=== PATIENT | female | born 1995 | race Caucasian/White ===

== ENCOUNTER 2018-12-23 22:26 | Emergency (ER) | payer OTHER ==
[2018-12-23 22:36] VITALS: BMI 27.3
--- NOTE | 2018-12-23 23:25 | PDOC ---
History of Present Illness - General Chief Complaint: Choking Sensation Stated Complaint: FOREIGN BODY STUCK/THROAT Time Seen by Provider: 12/23/18 23:22 Past History - Past Medical History Allergies/Adverse Reactions: Allergies Allergy/AdvReac Type Severity Reaction Status Date / Time No Known Allergies Allergy Verified 12/11/18 18:34 Home Medications: Ambulatory Orders No Home Medications 0 dose .ROUTE UTDICT 07/27/13 Methocarbamol [Robaxin -] 500 mg PO TID PRN #21 tablet 12/11/18 COPD: No - Immunization History Immunization Up to Date: Yes - Suicide/Smoking/Psychosocial Hx Smoking History: Never smoked Hx Alcohol Use: No Drug/Substance Use Hx: No *Physical Exam - Vital Signs Last Vital Signs Temp Pulse Resp BP Pulse Ox 98.5 F 110 H 19 146/78 96 12/23/18 22:33 12/23/18 22:33 12/23/18 22:33 12/23/18 22:33 12/23/18 22:33 Medical Decision Making - Medical Decision Making 12/24/18 02:06 No obvious FB in the esophagous on x-ray soft tissue neck Pt tolerating PO Will refer to GI given that she is having recurrent symptoms DC home Return precautions given *DC/Admit/Observation/Transfer Diagnosis at time of Disposition: Sensation of foreign body in esophagus - Discharge Dispostion Disposition: HOME Condition at time of disposition: Stable Decision to Admit order: No - Referrals Referrals: Juan Martinez MD [Staff Physician] - - Patient Instructions Additional Instructions: You were evaluated for a foreign body sensation in your throat. Your x-ray did not show any obstruction. Chew your food thoroughly in small bites and drink plenty of fluids when you eat. Please follow up with a frame and scrap crusher (stomach doctor) this week. A referral has been provided to you. Return to the ER for any new or worsening symptoms. - Post Discharge Activity Forms/Work/School Notes: Back to Work
--- NOTE | 2018-12-23 23:25 | PDOC ---
*Physical Exam - Vital Signs Last Vital Signs Temp Pulse Resp BP Pulse Ox 98.5 F 110 H 19 146/78 96 12/23/18 22:33 12/23/18 22:33 12/23/18 22:33 12/23/18 22:33 12/23/18 22:33 Medical Decision Making - Medical Decision Making 12/23/18 23:25 Patient seen by the advanced practice provider under my direct supervision. Ancillary testing reviewed as necessary. I agree with plan as outlined by the advanced practice provider. *DC/Admit/Observation/Transfer Diagnosis at time of Disposition: Sensation of foreign body in esophagus - Discharge Dispostion Disposition: HOME Condition at time of disposition: Stable - Prescriptions Prescriptions: Ondansetron [Zofran Odt -] 4 mg SL TID #10 od.tablet - Referrals Referrals: Juan Martinez MD [Staff Physician] - - Patient Instructions Additional Instructions: You were evaluated for a foreign body sensation in your throat. Your x-ray did not show any obstruction. Chew your food thoroughly in small bites and drink plenty of fluids when you eat. Please follow up with a education program manager (stomach doctor) this week. A referral has been provided to you. Return to the ER for any new or worsening symptoms. - Post Discharge Activity Forms/Work/School Notes: Back to Work
[2018-12-23] MEDS ORDERED: ACETAMINOPHEN 650 MG/20.3 ML ORAL SOLUTION (CUPS) PO ONE (23:26)
[2018-12-24] MEDS ORDERED: ACETAMINOPHEN 325 MG TABLET (FP) ONE (00:24)
[2018-12-24 02:49] VITALS: BP 117/69; PULSE 77; TEMP 98.3
== END 2018-12-24 02:51 | disposition home or self-care (01) ==
LOC: JER 22:26
DX: K22.8 Other specified diseases of esophagus (principal)
CPT/HCPCS: 70360-TC-FY; 99282-25

== ENCOUNTER 2019-04-08 01:10 | Emergency (ER) | payer OTHER ==
--- NOTE | 2019-04-08 01:55 | PDOC ---
Attending Attestation - Resident Resident Name: Grace Edwards - ED Attending Attestation I have performed the following: I have examined & evaluated the patient, The case was reviewed & discussed with the resident, I agree w/resident's findings & plan - HPI HPI: 04/08/19 02:20 see resident hpi - Physicial Exam PE: 04/08/19 02:20 agree with resident exam - Medical Decision Making 04/08/19 02:20 23-year-old female with atraumatic left-sided neck pain for several days Exam consistent with musculoskeletal pain, there are no signs or symptoms consistent with radiculopathy Patient is neurovascularly intact There is no midline tenderness There is no palpable mass No carotid bruit Patient will be given anti-inflammatories including dexamethasone She was advised that should she develop difficulty swallowing, swelling or any worsening in her condition including sore throat she should return to the emergency department for repeat evaluation
[2019-04-08] MEDS ORDERED: LIDOCAINE 5% TOPICAL PATCH TP ONE (02:05)
[2019-04-08 02:13] VITALS: BP 151/73; PULSE 95; TEMP 97.8; BMI 26.8
[2019-04-08] MEDS ORDERED: DEXAMETHASONE SOD PHOSPHATE 10 MG/1 ML VIAL IM ONE (02:13)
[2019-04-08] MEDS ORDERED: KETOROLAC TROMETHAMINE 30 MG/1 ML VIAL IM ONE (02:13)
--- NOTE | 2019-04-08 02:22 | PDOC ---
History of Present Illness - General Stated Complaint: NECK PAIN Time Seen by Provider: 04/08/19 01:50 History Source: Patient Exam Limitations: No Limitations - History of Present Illness Initial Comments: 04/08/19 02:29 23y F presenting to ED with complaints of L sided neck pain x3 days. Pt states she was asleep on a couch and when she woke up she felt a discomfort on the left side of her neck. She states that it feels like a stretching pain. Denies inability to range neck, dizziness, changes in vision, numbness/tingling, arm pain, weakness, sob, chest pain, headache. She took ibuprofen but it did not really help. Past History - Past Medical History Allergies/Adverse Reactions: Allergies Allergy/AdvReac Type Severity Reaction Status Date / Time No Known Allergies Allergy Verified 04/08/19 02:12 Home Medications: Ambulatory Orders Ondansetron [Zofran Odt -] 4 mg SL TID #10 od.tablet 12/24/18 COPD: No - Immunization History Immunization Up to Date: Yes - Psycho Social/Smoking Cessation Hx Smoking History: Never smoked Information on smoking cessation initiated: No Hx Alcohol Use: No Drug/Substance Use Hx: No Review of Systems - Review of Systems Constitutional: No: Symptoms Reported HEENTM: No: Symptoms Reported Respiratory: No: Symptoms reported Cardiac (ROS): No: Symptoms Reported ABD/GI: No: Symptoms Reported : No: Symptoms Reported Musculoskeletal: Yes: See HPI Integumentary: No: Symptoms Reported Neurological: No: Symptoms reported *Physical Exam - Vital Signs Last Vital Signs Temp Pulse Resp BP Pulse Ox 97.8 F 95 H 18 151/73 98 04/08/19 01:40 04/08/19 01:40 04/08/19 01:40 04/08/19 01:40 04/08/19 01:40 - Physical Exam General Appearance: Yes: Nourished, Appropriately Dressed. No: Apparent Distress HEENT: positive: EOMI, SHEREEN Neck: positive: Trachea midline, Supple. negative: Tender, Carotid bruit, Tender lateral Respiratory/Chest: positive: Lungs Clear, Normal Breath Sounds Gastrointestinal/Abdominal: negative: Distended Extremity: negative: Swelling Integumentary: positive: Normal Color, Dry, Warm Neurologic: positive: foreign agent II-XII NML intact, Fully Oriented, Alert, Normal Mood/ Affect, Normal Response, Motor Strength 5/5 Medical Decision Making - Medical Decision Making 04/08/19 02:33 23y F presenting with l sided neck pain after waking up from sleeping on the couch. ddx includes but not limited to dissection, torticollis, aneurysm, msk. most likley msk. pt denies neurological symptmos. low suspicion for dissection of vertebral aa. will give toradol and decadron. will advise patient to take motrin as needed and apply heating pads. safe for dc home Discharge - Discharge Information Problems reviewed: Yes Clinical Impression/Diagnosis: Trapezius muscle strain Qualifiers: Encounter type: initial encounter Laterality: left Qualified Code(s): S46.812A - Strain of other muscles, fascia and tendons at shoulder and upper arm level, left arm, initial encounter Condition: Fair Disposition: HOME - Admission No - Follow up/Referral Referrals: Art Rogers [Primary Care Provider] - - Patient Discharge Instructions Patient Printed Discharge Instructions: Muscle Strain Additional Instructions: You were seen in the emergency room for neck pain. This is likely due to the way you were sleeping. I recommend applying a heating pad and do light stretches. You can take Advil or motrin for the pain as needed. Please come back to the emergency room if you have worsening pain/stiffness, dizziness, you pass out, have throat pain or if any new or concerning symptom develops. Thank you - Post Discharge Activity
[2019-04-08] MEDS ORDERED: LIDOCAINE 5% TOPICAL PATCH ONE (02:25)
[2019-04-08] MEDS ORDERED: KETOROLAC TROMETHAMINE 30 MG/1 ML VIAL ONE (02:25)
[2019-04-08] MEDS ORDERED: DEXAMETHASONE SOD PHOSPHATE 10 MG/1 ML VIAL ONE (02:25)
[2019-04-08] MEDS ORDERED: LIDOCAINE PATCH REMOVAL MC SCH (22:00)
== END 2019-04-08 02:45 | disposition home or self-care (01) ==
LOC: JER 01:10
PROC: 3E0233Z Introduction of Anti-inflammatory into Muscle, Percutaneous Approach (ICD-10-PCS; principal; 2019-04-08)
PROC: 3E0233Z Introduction of Anti-inflammatory into Muscle, Percutaneous Approach (ICD-10-PCS; 2019-04-08)
DX: S46.812A Strain of other muscles, fascia and tendons at shoulder and upper arm level, left arm, initial encounter (principal); X50.1XXA Overexertion from prolonged static or awkward postures, initial encounter; Y93.84 Activity, sleeping; Y92.038 Other place in apartment as the place of occurrence of the external cause; Y99.8 Other external cause status
CPT/HCPCS: 99282-25; J1100

== ENCOUNTER 2019-05-27 03:50 | Inpatient (IN) | payer OTHER ==
[2019-05-27] MEDS ORDERED: SODIUM CHLORIDE 1,000 ML IV STA (04:20)
--- NOTE | 2019-05-27 04:20 | PDOC ---
History of Present Illness - General Stated Complaint: S.O.B. CHEST DISCOMFORT Time Seen by Provider: 05/27/19 04:13 History Source: Patient Exam Limitations: No Limitations - History of Present Illness Initial Comments: Breanna Tom is a 23 yo obese F w a hx of anxiety who presents to the [facility] er with chest pain worsened when she takes a deep breath and states she feels like she is short of breath. She reports it is difficult for her to fully inhale. She states she takes OCP. She describes her chest pain as sharp in nature. Denies radiation. She states she also has left lower leg and calf pain which have been hurting for 3 days now. She states she was seen at [facility] for the same complaints yesterday where they worked her up for a cardio work up which ultimately was negative and she was discharged. Denies nausea, vomiting, diaphoresis, worsening with physical activity. PCP: Art Rogers PSH: None reported Allergies: NKA, NKDA Social Hx: Denies smoking, drinking, or other substance usage. Past History - Past Medical History Allergies/Adverse Reactions: Allergies Allergy/AdvReac Type Severity Reaction Status Date / Time No Known Allergies Allergy Verified 05/27/19 04:41 Home Medications: Ambulatory Orders Norethindrone AC-Eth Estradiol [Junel] 1 each PO DAILY 05/27/19 COPD: No - Immunization History Immunization Up to Date: Yes - Psycho Social/Smoking Cessation Hx Smoking History: Never smoked Hx Alcohol Use: No Drug/Substance Use Hx: No Review of Systems - Review of Systems Able to Perform ROS?: Yes Comments:: CONSTITUTIONAL: Absent: fever, no chills, no fatigue EYES: Absent: visual changes ENT: Absent: ear pain, no sore throat CARDIOVASCULAR: Present: chest pain, palpitations RESPIRATORY: Present: SOB Absent: cough GI: Absent: abdominal pain, no nausea, no vomiting, no constipation, no diarrhea GENITOURINARY: Absent: dysuria, no frequency, no hematuria MUSKULOSKELETAL: Absent: back pain, no arthralgia, no myalgia SKIN: Absent: rash NEURO: Absent: headache *Physical Exam - Physical Exam GENERAL: Well-appearing, well-nourished. Mild distress. HEENT: Normocephalic, atraumatic. PERRL, EOM intact. CARDIOVASCULAR: Tachycardic rate. Normal S1, S2. Regular rhythm. PULMONARY: Mild evidence of respiratory distress. Lungs clear to auscultation bilaterally. No wheezing, rales or rhonchi. ABDOMEN: Soft, non-distended, non-tender. EXTREMITIES: Normal ROM in all four extremities. No gross deformities. SKIN: Warm, dry. No rash NEUROLOGICAL: No focal neurological deficits. ED Treatment Course - LABORATORY CBC & Chemistry Diagram: 05/27/19 04:35 05/27/19 04:35 Medical Decision Making - Medical Decision Making Breanna Tom is a 23 yo obese F w a hx of anxiety who presents to the [facility] er with chest pain worsened when she takes a deep breath and states she feels like she is short of breath. She reports it is difficult for her to fully inhale. She states she takes OCP. She describes her chest pain as sharp in nature. Denies radiation. She states she also has left lower leg and calf pain which have been hurting for 3 days now. She states she was seen at [facility] for the same complaints yesterday where they worked her up for a cardio work up which ultimately was negative and she was discharged. Denies nausea, vomiting, diaphoresis, worsening with physical activity. Vital Signs Temp Pulse Resp BP Pulse Ox 98.1 F 100 H 21 H 158/89 100 05/27/19 03:55 05/27/19 03:55 05/27/19 03:55 05/27/19 03:55 05/27/19 03:55 DDx IBNLT: DVT vs PE, ACS, arrythmia, Thyroid abnormality, electrolyte/ metabolic disturbance, EKG: NS rate of 77, narrow complexes, normal axis, no hypertrophy, no ST elevations or depressions, QTc 427, VA 134 PE assessment: Patient cannot be PERC'ed out as she is tachycardic and takes OCP Wells score: 1.5 for tachycardia vs 4.5 for Tachy plus PE #1 diagnosis - Plan for D-Dimer Labs: D-Dimer WNL. Completely normal. Signing out patient to Dr. Harrell and the day team for further ED care, management, and final disposition Discharge - Discharge Information Problems reviewed: Yes Clinical Impression/Diagnosis: Pulmonary emboli Qualifiers: Pulmonary embolism type: single subsegmental (without acute cor pulmonale) Qualified Code(s): I26.93 - Single subsegmental pulmonary embolism without acute cor pulmonale Condition: Good Disposition: HOME - Follow up/Referral - Patient Discharge Instructions - Post Discharge Activity
[2019-05-27 04:41] VITALS: BMI 26.4
--- NOTE | 2019-05-27 05:06 | PDOC ---
Attending Attestation - Resident Resident Name: Matt Coelho - ED Attending Attestation I have performed the following: I have examined & evaluated the patient, The case was reviewed & discussed with the resident, I agree w/resident's findings & plan - HPI HPI: 05/27/19 05:04 see resident hpi - Physicial Exam PE: 05/27/19 05:05 see resident exam 05/27/19 05:05 - Medical Decision Making 05/27/19 05:05 23-year-old female with dyspnea and leg cramping Patient is actively dyspneic, borderline tachycardia and on oral contraceptives Plan for CTA of the chest, labs, EKG Hopeful discharge home pending results
[2019-05-27 05:31] LABS: BASO % 0.7 % (0-2.0); EOS % 6.4 % (0-4.5); HEMATOCRIT 38.7 % (32.4-45.2); HEMOGLOBIN 13.5 GM/dL (10.7-15.3); LYMPH % 32.8 % (8-40); MCH 30.7 pg (25.7-33.7); MCHC 34.9 g/dl (32.0-36.0); MEAN CELL VOLUME 87.9 fl (80-96); MEAN PLT VOLUME 8.9 fl (7.5-11.1); MONO % 8.5 % (3.8-10.2); NEUT % 51.6 % (42.8-82.8); PLATELET COUNT 250 K/MM3 (134-434); RBC 4.41 M/mm3 (3.60-5.2); RDW 13.2 % (11.6-15.6); WHITE BLOOD COUNT 7.5 K/mm3 (4.0-10.0)
[2019-05-27 06:18] LABS: INR 1.01 (0.83-1.09); PROTHROMBIN TIME (PATIENT) 11.9 SEC (9.7-13.0)
[2019-05-27 06:21] LABS: ACTIVATED PTT 35.5 SECONDS (25.2-36.5)
[2019-05-27 06:56] LABS: ALBUMIN 4.2 g/dl (3.4-5.0); ALK PHOS 46 U/L (45-117); ANION GAP 10 MMOL/L (8-16); BILIRUBIN,TOTAL 0.2 mg/dL (0.2-1); BLOOD UREA NITROGEN 7.8 mg/dL (7-18); CHLORIDE 106 mmol/L (98-107); CO2 23 mmol/L (21-32); CREATININE 0.8 mg/dL (0.55-1.3); GLUCOSE,RANDOM 89 mg/dL (74-106); SGOT/AST 16 U/L (15-37); SGPT/ALT 18 U/L (13-61); SODIUM 139 mmol/L (136-145); TOT PROT 7.8 g/dl (6.4-8.2)
--- NOTE | 2019-05-27 07:18 | PDOC ---
*Physical Exam - Vital Signs Last Vital Signs Temp Pulse Resp BP Pulse Ox 98.1 F 67 18 131/76 100 05/27/19 03:55 05/27/19 06:25 05/27/19 06:25 05/27/19 06:25 05/27/19 06:25 ED Treatment Course - LABORATORY CBC & Chemistry Diagram: 05/27/19 04:35 05/27/19 04:35 - ADDITIONAL ORDERS Additional order review: Laboratory Results 05/27/19 05/27/19 05/27/19 04:35 04:35 04:35 PT with INR 11.90 INR 1.01 PTT (Actin FS) 35.5 D-Dimer < 215 Sodium Potassium Chloride Carbon Dioxide Anion Gap BUN Creatinine Est GFR (CKD-EPI)AfAm Est GFR (CKD-EPI)NonAf Random Glucose Calcium Magnesium Total Bilirubin AST ALT Alkaline Phosphatase Creatine Kinase Troponin I B-Natriuretic Peptide 20.1 Total Protein Albumin TSH 05/27/19 05/27/19 04:35 04:35 PT with INR INR PTT (Actin FS) D-Dimer Sodium 139 Potassium 4.0 Chloride 106 Carbon Dioxide 23 Anion Gap 10 BUN 7.8 Creatinine 0.8 Est GFR (CKD-EPI)AfAm 122.14 Est GFR (CKD-EPI)NonAf 105.39 Random Glucose 89 Calcium 10.0 Magnesium 2.0 Total Bilirubin 0.2 AST 16 ALT 18 Alkaline Phosphatase 46 Creatine Kinase 80 Troponin I < 0.02 B-Natriuretic Peptide Total Protein 7.8 Albumin 4.2 TSH 2.10 05/27/19 04:35 RBC 4.41 MCV 87.9 MCHC 34.9 RDW 13.2 MPV 8.9 Neutrophils % 51.6 Lymphocytes % 32.8 Monocytes % 8.5 Eosinophils % 6.4 H D Basophils % 0.7 - Medications Given in the ED: ED Medications Discontinued Medications Generic Name Dose Route Start Last Admin Trade Name Freq PRN Reason Stop Dose Admin Sodium Chloride 1,000 mls @ 1,000 mls/hr 05/27/19 04:20 05/27/19 04:39 Normal Saline - IV 05/27/19 05:19 1,000 mls/hr ASDIR STA Administration Medical Decision Making - Medical Decision Making 05/27/19 07:22 Duplex US - no DVT leg CTA - Questionable filling defects within RUL pulmonary arterial branches that may represent PE, finding not consistent on all views and may be artifact --- Signed out from night team Breanna Tom is a 23 yo obese F w a hx of anxiety who presents to the [facility] er with pleuritic chest pain, SOB, LLE pain on OCP. Questionable PE in RUL pulmonary artery on CTA. Low concern for ACS (neg trop, NSR EKG) vs PNA (clear lungs on CTA) vs DVT (negative L leg duplex US) Given toradol, 1L NS, 70 lovenox Admitted m/s hospitalist for PE Discharge - Discharge Information Problems reviewed: Yes Clinical Impression/Diagnosis: Pulmonary emboli Qualifiers: Pulmonary embolism type: single subsegmental (without acute cor pulmonale) Qualified Code(s): I26.93 - Single subsegmental pulmonary embolism without acute cor pulmonale Condition: Good Disposition: HOME - Admission No - Follow up/Referral - Patient Discharge Instructions - Post Discharge Activity
[2019-05-27] MEDS ORDERED: KETOROLAC TROMETHAMINE 30 MG/1 ML VIAL IVPUSH ONE (07:31)
[2019-05-27] MEDS ORDERED: KETOROLAC TROMETHAMINE 30 MG/1 ML VIAL ONE (07:47)
[2019-05-27] MEDS ORDERED: ENOXAPARIN NA (PORCINE) 40 MG/0.4 ML DISP.SYRIN SQ ONE (09:57)
[2019-05-27] MEDS ORDERED: ENOXAPARIN NA (PORCINE) 80 MG/0.8 ML DISP.SYRIN SQ ONE (10:23)
--- NOTE | 2019-05-27 12:38 | CON.PULM ---
Consult Consult Specialty:: PULM/CCM Referred by:: Hospitalist Reason for Consultation:: Questionable PE - History of Present Illness Chief Complaint: CP History of Present Illness: 23 F, only medical history of anxiety. No asthma. Non-smoker. No alcohol or substance abuse. She does take OCPs. Has been experiencing non-radiating sternal chest pressure and difficulty in taking a deep breath since Friday. No recent travel history or periods of immobilization. No previous personal or family history of VTE. Patient was assessed yesterday at [facility] for the same and apparently the workup was negative. No fever or chills. No hemoptysis. CTA reviewed with radiology. There is a questionable RUL and LLL segmental PE. Suggested to order V/Q scan. - History Source History Provided By: Patient Limitations to Obtaining History: No Limitations - Past Medical History Pulmonary: No: Asthma, Bronchitis, Cancer, COPD, O2 Dependent, Pneumonia, Previously Intubated, Pulmonary Embolus, Pulmonary Fibrosis, Sleep Apnea ...LMP: 07/11/13 - Alcohol/Substance Use Hx Alcohol Use: No - Smoking History Smoking history: Never smoked Home Medications - Allergies Allergies/Adverse Reactions: Allergies Allergy/AdvReac Type Severity Reaction Status Date / Time No Known Allergies Allergy Verified 05/27/19 04:41 - Home Medications Home Medications: Ambulatory Orders Norethindrone AC-Eth Estradiol [] 1 each PO DAILY 05/27/19 Review of Systems - Review of Systems Constitutional: denies: Chills, Fever, Night Sweats, Unintentional Wgt. Loss Eyes: reports: No Symptoms HENT: reports: No Symptoms Neck: reports: No Symptoms Cardiovascular: reports: Chest Pain, Shortness of Breath. denies: Edema, Palpitations Respiratory: reports: Cough, SOB, SOB on Exertion. denies: Hemoptysis, Orthopnea, PND, Snoring, Wheezing Gastrointestinal: reports: No Symptoms Genitourinary: reports: No Symptoms Breasts: reports: No Symptoms Reported Musculoskeletal: reports: Muscle Cramps Integumentary: reports: No Symptoms Neurological: reports: No Symptoms Endocrine: reports: No Symptoms Hematology/Lymphatic: reports: No Symptoms Psychiatric: reports: No Symptoms Physical Exam Vital Sings: Vital Signs Temperature 98.1 F 05/27/19 03:55 Pulse Rate 72 05/27/19 09:46 Respiratory Rate 20 05/27/19 09:46 Blood Pressure 117/74 05/27/19 09:46 O2 Sat by Pulse Oximetry (%) 100 05/27/19 09:47 Constitutional: Yes: No Distress Eyes: Yes: Conjunctiva Clear, EOM Intact HENT: Yes: Atraumatic, Normocephalic Neck: Yes: Trachea Midline Cardiovascular: Yes: Regular Rate and Rhythm Respiratory: No: Accessory Muscle Use, Rales, Rhonchi, SOB, SOB on Exertion, Stridor, Tachypnea, Wheezes ...Inspection: Yes: WNL ...Clubbing: No Gastrointestinal: Yes: Normal Bowel Sounds, Soft Renal/: Yes: WNL Musculoskeletal: Yes: WNL Extremities: Yes: WNL Edema: No Peripheral Pulses WNL: Yes Integumentary: Yes: WNL Neurological: Yes: WNL, Alert, Oriented ...Motor Strength: WNL Psychiatric: Yes: WNL, Alert, Oriented Labs: CBC, BMP 05/27/19 04:35 05/27/19 04:35 Imaging - Results Cat Scan: Report Reviewed, Image Reviewed Problem List - Problems (1) Anxiety Code(s): F41.9 - ANXIETY DISORDER, UNSPECIFIED (2) Pleuritic chest pain Code(s): R07.81 - PLEURODYNIA (3) Chest pain Code(s): R07.9 - CHEST PAIN, UNSPECIFIED Assessment/Plan IMP: Questionable RUL and LLL segmental PE. Unclear on CTA. D/W Radiology. Will order V/Q scan. DVT study was negative No smoking was counseled Patient has received a prophylactic dose of Lovenox, to continue until PE is ruled out. Will follow closely Thank you. Dr Gallegos
--- NOTE | 2019-05-27 14:25 | EKG ---
Test Reason : Blood Pressure : / mmHG Vent. Rate : 077 BPM Atrial Rate : 077 BPM P-R Int : 134 ms QRS Dur : 082 ms QT Int : 378 ms P-R-T Axes : 038 032 021 degrees QTc Int : 427 ms NORMAL SINUS RHYTHM NORMAL ECG NO PREVIOUS ECGS AVAILABLE Confirmed by DEL NESS MD ([id number]) on 05/27/2019 2:25:28 PM Referred By: Confirmed By:DEL NESS MD
--- NOTE | 2019-05-27 15:47 | HP ---
CHIEF COMPLAINT: sob PCP: none HISTORY OF PRESENT ILLNESS: Patient is a 23 yo F with a PMHx of Anxiety, presenting to the ED because of sudden shortness of breath and pleuritic chest pain when trying to fall asleep last night. Patient describes the chest pain as L sided, nonradiating, constant , 9/10 pain, worse with breathing. She also mentions having RLE calf pain that started around the same time. She said she was worried about blood clots and decided to go to the ER. She said she went to [facility] ER on 3 days prior for similar symptoms but was discharged with no answers. Patient takes OCP's. No recent travels, no history of DVTs/PE in the family, or immobilization. She denies fevers, chills, diarrhea, urinary symptoms, nausea, vomiting, hemoptysis , dizziness, lightheadedness. ER course was notable for: (1) CTA : There is a questionable RUL and LLL segmental PE. Suggested to order V/Q scan. (2) vs stable (3) lovenox 70mg given Recent Travel: denies PAST MEDICAL HISTORY: anxiety PAST SURGICAL HISTORY: denies Social History: Smoking: denies Alcohol: rarely Drugs: denies Allergies No Known Allergies Allergy (Verified 05/27/19 04:41) HOME MEDICATIONS: Home Medications Medication Instructions Recorded Norethindrone AC-Eth Estradiol 1 each PO DAILY 05/27/19 [] REVIEW OF SYSTEMS per HPI PHYSICAL EXAMINATION Vital Signs - 24 hr 05/27/19 05/27/19 05/27/19 03:55 06:25 09:46 Temperature 98.1 F Pulse Rate 100 H Pulse Rate [ 67 72 Left Radial] Respiratory 21 H 18 20 Rate Blood Pressure 158/89 Blood Pressure 131/76 117/74 [Left Arm] O2 Sat by Pulse 100 100 100 Oximetry (%) 05/27/19 05/27/19 09:47 14:40 Temperature 97.7 F Pulse Rate Pulse Rate [ 74 Left Radial] Respiratory 20 Rate Blood Pressure Blood Pressure 137/87 [Left Arm] O2 Sat by Pulse 100 99 Oximetry (%) GENERAL: a/o x 3, comfortable HEAD: Normal with no signs of trauma. EYES: Pupils equal, round and reactive to light, extraocular movements intact, sclera anicteric, conjunctiva clear. No lid lag. EARS, NOSE, THROAT:oropharynx clear without exudates. Moist mucous membranes. NECK: supple without lymphadenopathy, JVD, or masses. LUNGS: Breath sounds equal, clear to auscultation bilaterally. No wheezes, and no crackles. HEART: Regular rate and rhythm, normal S1 and S2 without murmur, rub or gallop. ABDOMEN: Soft, nontender, not distended, normoactive bowel sounds, no guarding, no rebound, no masses LOWER EXTREMITIES: 2+ pulses, warm, well-perfused. No calf tenderness. No peripheral edema. negative homans NEUROLOGICAL: Cranial nerves II-XII intact. Normal speech Laboratory Results - last 24 hr 05/27/19 05/27/19 05/27/19 04:35 04:35 04:35 WBC 7.5 RBC 4.41 Hgb 13.5 Hct 38.7 MCV 87.9 MCH 30.7 MCHC 34.9 RDW 13.2 Plt Count 250 MPV 8.9 Absolute Neuts (auto) 3.9 Neutrophils % 51.6 Lymphocytes % 32.8 Monocytes % 8.5 Eosinophils % 6.4 H D Basophils % 0.7 Nucleated RBC % 0 PT with INR INR PTT (Actin FS) D-Dimer Sodium 139 Potassium 4.0 Chloride 106 Carbon Dioxide 23 Anion Gap 10 BUN 7.8 Creatinine 0.8 Est GFR (CKD-EPI)AfAm 122.14 Est GFR (CKD-EPI)NonAf 105.39 Random Glucose 89 Calcium 10.0 Magnesium 2.0 Total Bilirubin 0.2 AST 16 ALT 18 Alkaline Phosphatase 46 Creatine Kinase 80 Troponin I < 0.02 B-Natriuretic Peptide Total Protein 7.8 Albumin 4.2 TSH 2.10 Serum , Qual 05/27/19 05/27/19 05/27/19 04:35 04:35 04:35 WBC RBC Hgb Hct MCV MCH MCHC RDW Plt Count MPV Absolute Neuts (auto) Neutrophils % Lymphocytes % Monocytes % Eosinophils % Basophils % Nucleated RBC % PT with INR 11.90 INR 1.01 PTT (Actin FS) 35.5 D-Dimer < 215 Sodium Potassium Chloride Carbon Dioxide Anion Gap BUN Creatinine Est GFR (CKD-EPI)AfAm Est GFR (CKD-EPI)NonAf Random Glucose Calcium Magnesium Total Bilirubin AST ALT Alkaline Phosphatase Creatine Kinase Troponin I B-Natriuretic Peptide 20.1 Total Protein Albumin TSH Serum , Qual 05/27/19 05/27/19 04:35 12:00 WBC RBC Hgb Hct MCV MCH MCHC RDW Plt Count MPV Absolute Neuts (auto) Neutrophils % Lymphocytes % Monocytes % Eosinophils % Basophils % Nucleated RBC % PT with INR INR PTT (Actin FS) D-Dimer Sodium Potassium Chloride Carbon Dioxide Anion Gap BUN Creatinine Est GFR (CKD-EPI)AfAm Est GFR (CKD-EPI)NonAf Random Glucose Calcium Magnesium Total Bilirubin AST ALT Alkaline Phosphatase Creatine Kinase Troponin I < 0.02 B-Natriuretic Peptide Total Protein Albumin TSH Serum , Qual Negative ASSESSMENT/PLAN: 23 yo F with a PMHx of Anxiety, presenting to the ED because of sudden shortness of breath and pleuritic chest pain. #Pleuritic Chest Pain -r/o PE -Questionable RUL and LLL segmental PE. Unclear on CTA. -V/q scan ordered -patient HD stable. -dvt study negative -Lovenox 70mg BID for now -Fu pulm reccs -tele monitoring #Anxiety -stable for now -says she is planning on seeing a psychiatrist outpatient #Dvt ppx on lovenox #FEN -no iv fluids -monitor -regular diet dispo: admit tele Visit type - Emergency Visit Emergency Visit: Yes ED Registration Date: 05/27/19 Care time: The patient presented to the Emergency Department on the above date and was hospitalized for further evaluation of their emergent condition. - New Patient This patient is new to me today: Yes Date on this admission: 05/27/19 - Critical Care Critical Care patient: No ATTENDING PHYSICIAN STATEMENT I saw and evaluated the patient. I reviewed the resident's note and discussed the case with the resident. I agree with the resident's findings and plan as documented. SUBJECTIVE: OBJECTIVE: ASSESSMENT AND PLAN:
--- NOTE | 2019-05-27 16:33 | PN ---
Teaching Attending Note Name of Resident: Mathieu Lubin ATTENDING PHYSICIAN STATEMENT I saw and evaluated the patient. I reviewed the resident's note and discussed the case with the resident. I agree with the resident's findings and plan as documented. SUBJECTIVE: Seen and examined at bedside. patient feels better, MANCILLA with palpitations. 23 year old female on OCPs who presents with pleuritic chest pain. recently evaluated at [facility] 3 days ago for same symptoms and was DC, unclear workup. OBJECTIVE: Vital Signs - 24 hr 05/27/19 05/27/19 05/27/19 03:55 06:25 09:46 Temperature 98.1 F Pulse Rate 100 H Pulse Rate [ 67 72 Left Radial] Respiratory 21 H 18 20 Rate Blood Pressure 158/89 Blood Pressure 131/76 117/74 [Left Arm] O2 Sat by Pulse 100 100 100 Oximetry (%) 05/27/19 05/27/19 09:47 14:40 Temperature 97.7 F Pulse Rate Pulse Rate [ 74 Left Radial] Respiratory 20 Rate Blood Pressure Blood Pressure 137/87 [Left Arm] O2 Sat by Pulse 100 99 Oximetry (%) PE: Gen: NAD CVS: s1s2, RRR, no mrg Lungs: CTA bl, unlabored, no wrr Abd: soft, nt/nd, nabs Ext: no c/c/e, no calf pain Current Medications Enoxaparin Sodium (Lovenox -) 70 mg SQ BID JIAN Laboratory Results - last 24 hr 05/27/19 05/27/19 05/27/19 04:35 04:35 04:35 WBC 7.5 RBC 4.41 Hgb 13.5 Hct 38.7 MCV 87.9 MCH 30.7 MCHC 34.9 RDW 13.2 Plt Count 250 MPV 8.9 Absolute Neuts (auto) 3.9 Neutrophils % 51.6 Lymphocytes % 32.8 Monocytes % 8.5 Eosinophils % 6.4 H D Basophils % 0.7 Nucleated RBC % 0 PT with INR INR PTT (Actin FS) D-Dimer Sodium 139 Potassium 4.0 Chloride 106 Carbon Dioxide 23 Anion Gap 10 BUN 7.8 Creatinine 0.8 Est GFR (CKD-EPI)AfAm 122.14 Est GFR (CKD-EPI)NonAf 105.39 Random Glucose 89 Calcium 10.0 Magnesium 2.0 Total Bilirubin 0.2 AST 16 ALT 18 Alkaline Phosphatase 46 Creatine Kinase 80 Troponin I < 0.02 B-Natriuretic Peptide Total Protein 7.8 Albumin 4.2 TSH 2.10 Serum , Qual 05/27/19 05/27/19 05/27/19 04:35 04:35 04:35 WBC RBC Hgb Hct MCV MCH MCHC RDW Plt Count MPV Absolute Neuts (auto) Neutrophils % Lymphocytes % Monocytes % Eosinophils % Basophils % Nucleated RBC % PT with INR 11.90 INR 1.01 PTT (Actin FS) 35.5 D-Dimer < 215 Sodium Potassium Chloride Carbon Dioxide Anion Gap BUN Creatinine Est GFR (CKD-EPI)AfAm Est GFR (CKD-EPI)NonAf Random Glucose Calcium Magnesium Total Bilirubin AST ALT Alkaline Phosphatase Creatine Kinase Troponin I B-Natriuretic Peptide 20.1 Total Protein Albumin TSH Serum , Qual 05/27/19 05/27/19 04:35 12:00 WBC RBC Hgb Hct MCV MCH MCHC RDW Plt Count MPV Absolute Neuts (auto) Neutrophils % Lymphocytes % Monocytes % Eosinophils % Basophils % Nucleated RBC % PT with INR INR PTT (Actin FS) D-Dimer Sodium Potassium Chloride Carbon Dioxide Anion Gap BUN Creatinine Est GFR (CKD-EPI)AfAm Est GFR (CKD-EPI)NonAf Random Glucose Calcium Magnesium Total Bilirubin AST ALT Alkaline Phosphatase Creatine Kinase Troponin I < 0.02 B-Natriuretic Peptide Total Protein Albumin TSH Serum , Qual Negative all imaging reports reviewed ASSESSMENT AND PLAN: 23 year old female on OCPs presents with pleuritic chest pain 1) Pleuritic chest pain -CTA with questionable filling defects RUL and LLL -V/Q scan done adn pending -LE doppler negative for DVT -Lovenox full dose pending v/q -pulm eval -monitor on tele
[2019-05-27] MEDS ORDERED: ENOXAPARIN NA (PORCINE) 80 MG/0.8 ML DISP.SYRIN SQ SCH (22:00)
[2019-05-28 07:46] LABS: BASO % 0.7 % (0-2.0); EOS % 5.1 % (0-4.5); HEMOGLOBIN 12.7 GM/dL (10.7-15.3); LYMPH % 43.6 % (8-40); MCH 31.2 pg (25.7-33.7); MCHC 35.1 g/dl (32.0-36.0); MEAN CELL VOLUME 88.7 fl (80-96); MEAN PLT VOLUME 8.9 fl (7.5-11.1); MONO % 7.9 % (3.8-10.2); NEUT % 42.7 % (42.8-82.8); PLATELET COUNT 227 K/MM3 (134-434); RBC 4.06 M/mm3 (3.60-5.2); WHITE BLOOD COUNT 5.8 K/mm3 (4.0-10.0)
[2019-05-28] MEDS ORDERED: ALBUTEROL SO4 HFA INHALER IH PRN (07:48)
[2019-05-28 08:12] LABS: ALBUMIN 3.6 g/dl (3.4-5.0); BILIRUBIN,TOTAL 0.6 mg/dL (0.2-1); CALCIUM 9.4 mg/dL (8.5-10.1); CREATININE 0.8 mg/dL (0.55-1.3); MAGNESIUM 1.8 mg/dL (1.8-2.4); PHOSPHOROUS 4.1 mg/dL (2.5-4.9); TOT PROT 7.3 g/dl (6.4-8.2)
[2019-05-28] MEDS ORDERED: ENOXAPARIN NA (PORCINE) 40 MG/0.4 ML DISP.SYRIN SQ SCH (10:00)
--- NOTE | 2019-05-28 11:33 | DS ---
Physical Exam: SUBJECTIVE: Patient seen and examined. Offers no complaints today. Denies SOB or chest pain. OBJECTIVE: Vital Signs Period Temp Pulse Resp BP Sys/Claudio Pulse Ox Last 24 Hr 97.6 F-98.4 F 70-79 18-20 132-148/77-87 97-99 PHYSICAL EXAM GENERAL: a/o x 3, comfortable HEAD: Normal with no signs of trauma. EYES: Pupils equal, round and reactive to light, extraocular movements intact, sclera anicteric, conjunctiva clear. No lid lag. EARS, NOSE, THROAT:oropharynx clear without exudates. Moist mucous membranes. NECK: supple without lymphadenopathy, JVD, or masses. LUNGS: Breath sounds equal, clear to auscultation bilaterally. No wheezes, and no crackles. HEART: Regular rate and rhythm, normal S1 and S2 without murmur, rub or gallop. ABDOMEN: Soft, nontender, not distended, normoactive bowel sounds, no guarding, no rebound, no masses LOWER EXTREMITIES: 2+ pulses, warm, well-perfused. No calf tenderness. No peripheral edema. negative homans NEUROLOGICAL: Cranial nerves II-XII intact. Normal speech LABS Laboratory Results - last 24 hr 05/27/19 05/28/19 05/28/19 12:00 06:00 06:00 WBC 5.8 RBC 4.06 Hgb 12.7 Hct 36.0 MCV 88.7 MCH 31.2 MCHC 35.1 RDW 13.0 Plt Count 227 MPV 8.9 Absolute Neuts (auto) 2.5 Neutrophils % 42.7 L Lymphocytes % 43.6 H D Monocytes % 7.9 Eosinophils % 5.1 H Basophils % 0.7 Nucleated RBC % 0 Sodium 137 Potassium 4.0 Chloride 105 Carbon Dioxide 25 Anion Gap 7 L BUN 8.0 Creatinine 0.8 Est GFR (CKD-EPI)AfAm 122.14 Est GFR (CKD-EPI)NonAf 105.39 Random Glucose 83 Calcium 9.4 Phosphorus 4.1 Magnesium 1.8 Total Bilirubin 0.6 AST 14 L ALT 18 Alkaline Phosphatase 44 L Troponin I < 0.02 Total Protein 7.3 Albumin 3.6 HOSPITAL COURSE: Date of Admission:05/27/19 23 yo F with a PMHx of Anxiety, presenting to the ED because of sudden shortness of breath and pleuritic chest pain. #Pleuritic Chest Pain -resolved -PE was suspected at admission because of Questionable RUL and LLL segmental PE. Unclear on CTA. -unlikely PE. duplex negative, V/Q scan unremarkable. -patient HD stable. -d/c lovenox -FU with pulm outpatient for possible reactive airway disease on VQ scan -stable for discharge #Anxiety -stable for now -says she is planning on seeing a psychiatrist outpatient can dc home Date of Discharge: 05/28/19 Minutes to complete discharge: 35 Discharge Summary Problems reviewed: Yes Reason For Visit: PULMONARY EMBOLISM Current Active Problems Anxiety (Acute) Chest pain (Acute) Pulmonary emboli (Acute) Condition: Good - Instructions Diet, Activity, Other Instructions: You were admitted because you had shortness of breath and chest pain. You will need to follow up with your primary care doctor within 1 week. One of the tests revealed possible asthma or bronchitis, so we will discharge you with 2 medications. One of them is an inhaler. Take as prescribed. We will refer you to a intravenous therapy nurse (lung doctor). Please follow up with him. Referrals: Art Rogers [Primary Care Provider] - 1 Week Reji Gallegos MD [Staff Physician] - Disposition: HOME - Home Medications Comprehensive Discharge Medication List: Ambulatory Orders Norethindrone AC-Eth Estradiol [Junel 1.5 mg-30 Mcg Tablet] 1 each PO DAILY 10/08 Albuterol Sulfate Inhaler - [Ventolin HFA Inhaler -] 2 puff IH Q4H PRN #1 inhaler 05/28/19 Montelukast Na [Singulair -] 10 mg PO HS #30 tab.chew 05/28/19 This patient is new to me today: Yes Date on this admission: 05/28/19 Emergency Visit: Yes ED Registration Date: 05/27/19 Care time: The patient presented to the Emergency Department on the above date and was hospitalized for further evaluation of their emergent condition. Critical Care patient: No - Discharge Referral Referred to [facility] Med P.C.: No ATTENDING PHYSICIAN STATEMENT I saw and evaluated the patient. I reviewed the resident's note and discussed the case with the resident. I agree with the resident's findings and plan as documented. SUBJECTIVE: OBJECTIVE: ASSESSMENT AND PLAN:
--- NOTE | 2019-05-28 11:40 | ECHO ---
Name: ZALDIVARLORNA Exam:Adult Echocardiogram Study Date: 05/28/2019 10:05 AM Age: 23 yrs Reason For Study: possible pe Height: 64 in Weight: 154 lb BSA: 1.8 m2 MMode/2D Measurements & Calculations IVSd: 0.77 cm Ao root diam: 2.7 cm LVIDd: 4.4 cm LA dimension: 2.8 cm LVIDs: 3.0 cm LVPWd: 0.93 cm LVPWs: 1.4 cm EDV(Teich): 90.0 ml ESV(Teich): 36.1 ml LVOT diam: 2.0 cm TAPSE: 2.0 cm RV S Williams: 12.6 cm/sec Doppler Measurements & Calculations MV E max williams: 103.0 cm/sec Ao V2 max: 125.1 cm/sec MV A max williams: 67.8 cm/sec Ao max P.3 mmHg MV E/A: 1.5 MV dec time: 0.14 sec LYNNETTE(V,D): 2.5 cm2 LV V1 max P.9 mmHg PA V2 max: 101.3 cm/sec LV V1 max: 98.5 cm/sec PA max P.1 mmHg Med Peak E' Williams: 9.0 cm/sec Med E/e': 11.4 Lat Peak E' Williams: 18.0 cm/sec Lat E/e': 5.7 Left Ventricle The left ventricular size, thickness and function are normal. Ejection Fraction = 55-60%. Right Ventricle The right ventricle is normal in size and function. Atria Normal left and right atrial size and function. Mitral Valve The mitral valve is normal in structure and function. There is no mitral valve stenosis. There is mil d mitral regurgitation. Tricuspid Valve The tricuspid valve is normal in structure and function. There is mild tricuspid regurgitation. Aortic Valve The aortic valve is trileaflet. No hemodynamically significant valvular aortic stenosis. No aortic regurgitation is present. Pulmonic Valve The pulmonic valve is not well seen, but is grossly normal. There is no pulmonic valvular stenosis. T here is no pulmonic valvular regurgitation. Great Vessels The aortic root is normal size. Pericardium/Pleura There is no pericardial effusion. Interpretation Summary The left ventricular size, thickness and function are normal Ejection Fraction = 55-60%. The right ventricle is normal in size and function. There is mild mitral regurgitation. The aortic root is normal size. There is no pericardial effusion. MD Alas *Poncho 05/28/2019 11:40 AM
[2019-05-28 12:22] VITALS: BP 149/93; PULSE 81; TEMP 97.9
--- NOTE | 2019-05-28 12:47 | PN ---
Progress Note (short form) - Note Progress Note: Feels overall better today. Mother at the bedside. V/Q: good qaulity study. NO evidence of perfusion defect. NO PE. Intake & Output 05/25/19 05/26/19 05/27/19 05/28/19 23:59 23:59 23:59 23:59 Intake Total 550 240 Balance 550 240 Weight 154 lb Last Vital Signs Temp Pulse Resp BP Pulse Ox 97.9 F 81 20 149/93 99 05/28/19 10:00 05/28/19 10:00 05/28/19 10:00 05/28/19 10:00 05/28/19 09:00 Active Medications Albuterol Sulfate (Ventolin Hfa Inhaler -) 2 puff IH Q4H PRN PRN Reason: SHORT OF BREATH/WHEEZING Enoxaparin Sodium (Lovenox -) 40 mg SQ DAILY JIAN Last Admin: 05/28/19 11:08 Dose: 40 mg Montelukast Sodium (Singulair -) 10 mg PO [facility] Constitutional: Yes: No Distress Eyes: Yes: Conjunctiva Clear, EOM Intact HENT: Yes: Atraumatic, Normocephalic Neck: Yes: Trachea Midline Cardiovascular: Yes: Regular Rate and Rhythm Respiratory: No: Accessory Muscle Use, Rales, Rhonchi, SOB, SOB on Exertion, Stridor, Tachypnea, Wheezes ...Inspection: Yes: WNL ...Clubbing: No Gastrointestinal: Yes: Normal Bowel Sounds, Soft Renal/: Yes: WNL Musculoskeletal: Yes: WNL Extremities: Yes: WNL Edema: No Peripheral Pulses WNL: Yes Integumentary: Yes: WNL Neurological: Yes: WNL, Alert, Oriented ...Motor Strength: WNL Psychiatric: Yes: WNL, Alert, Oriented Labs: Laboratory Results - last 24 hr 05/27/19 05/28/19 05/28/19 12:00 06:00 06:00 WBC 5.8 RBC 4.06 Hgb 12.7 Hct 36.0 MCV 88.7 MCH 31.2 MCHC 35.1 RDW 13.0 Plt Count 227 MPV 8.9 Absolute Neuts (auto) 2.5 Neutrophils % 42.7 L Lymphocytes % 43.6 H D Monocytes % 7.9 Eosinophils % 5.1 H Basophils % 0.7 Nucleated RBC % 0 Sodium 137 Potassium 4.0 Chloride 105 Carbon Dioxide 25 Anion Gap 7 L BUN 8.0 Creatinine 0.8 Est GFR (CKD-EPI)AfAm 122.14 Est GFR (CKD-EPI)NonAf 105.39 Random Glucose 83 Calcium 9.4 Phosphorus 4.1 Magnesium 1.8 Total Bilirubin 0.6 AST 14 L ALT 18 Alkaline Phosphatase 44 L Troponin I < 0.02 Total Protein 7.3 Albumin 3.6 Problem List - Problems (1) Anxiety Code(s): F41.9 - ANXIETY DISORDER, UNSPECIFIED (2) Pleuritic chest pain Code(s): R07.81 - PLEURODYNIA (3) Chest pain Code(s): R07.9 - CHEST PAIN, UNSPECIFIED Assessment/Plan IMP: NO PE: evidenced by normal perfusion scan (V/Q). Costochondritis DVT ruled out No smoking was counseled Patient to follow in my office There is no Pulmonary contraindication for DC Home Dr Gallegos Problem List - Problems (1) Anxiety Code(s): F41.9 - ANXIETY DISORDER, UNSPECIFIED (2) Pleuritic chest pain Code(s): R07.81 - PLEURODYNIA (3) Chest pain Code(s): R07.9 - CHEST PAIN, UNSPECIFIED
--- NOTE | 2019-05-28 13:36 | PN ---
Teaching Attending Note Name of Resident: Mathieu Lubin ATTENDING PHYSICIAN STATEMENT I saw and evaluated the patient. I reviewed the resident's note and discussed the case with the resident. I agree with the resident's findings and plan as documented. SUBJECTIVE: Feels better, VQ/CTA neg. for acute PE, likely 2/2 reactive airway disease, Echo unremarable, stable for DC w/ outpatient follow up. OBJECTIVE: GENERAL: a/o x 3, comfortable HEAD: Normal with no signs of trauma. EYES: Pupils equal, round and reactive to light, extraocular movements intact, sclera anicteric, conjunctiva clear. No lid lag. EARS, NOSE, THROAT:oropharynx clear without exudates. Moist mucous membranes. NECK: supple without lymphadenopathy, JVD, or masses. LUNGS: Breath sounds equal, clear to auscultation bilaterally. No wheezes, and no crackles. HEART: Regular rate and rhythm, normal S1 and S2 without murmur, rub or gallop. ABDOMEN: Soft, nontender, not distended, normoactive bowel sounds, no guarding, no rebound, no masses LOWER EXTREMITIES: 2+ pulses, warm, well-perfused. No calf tenderness. No peripheral edema. negative homans NEUROLOGICAL: Cranial nerves II-XII intact. Normal speech Vital Signs - 24 hr 05/27/19 05/27/19 05/27/19 14:40 16:34 20:29 Temperature 97.7 F 98 F Pulse Rate 79 Pulse Rate [ 74 Left Radial] Respiratory 20 18 Rate Blood Pressure 137/83 Blood Pressure 137/87 [Left Arm] O2 Sat by Pulse 99 97 98 Oximetry (%) 05/27/19 05/28/19 05/28/19 21:15 02:00 05:32 Temperature 98.4 F 97.6 F 97.8 F Pulse Rate 71 74 70 Pulse Rate [ Left Radial] Respiratory 18 18 20 Rate Blood Pressure 146/77 148/79 132/87 Blood Pressure [Left Arm] O2 Sat by Pulse Oximetry (%) 05/28/19 05/28/19 09:00 10:00 Temperature 97.9 F Pulse Rate 81 Pulse Rate [ Left Radial] Respiratory 20 20 Rate Blood Pressure 149/93 Blood Pressure [Left Arm] O2 Sat by Pulse 99 Oximetry (%) Laboratory Results - last 24 hr 05/27/19 05/28/19 05/28/19 12:00 06:00 06:00 WBC 5.8 RBC 4.06 Hgb 12.7 Hct 36.0 MCV 88.7 MCH 31.2 MCHC 35.1 RDW 13.0 Plt Count 227 MPV 8.9 Absolute Neuts (auto) 2.5 Neutrophils % 42.7 L Lymphocytes % 43.6 H D Monocytes % 7.9 Eosinophils % 5.1 H Basophils % 0.7 Nucleated RBC % 0 Sodium 137 Potassium 4.0 Chloride 105 Carbon Dioxide 25 Anion Gap 7 L BUN 8.0 Creatinine 0.8 Est GFR (CKD-EPI)AfAm 122.14 Est GFR (CKD-EPI)NonAf 105.39 Random Glucose 83 Calcium 9.4 Phosphorus 4.1 Magnesium 1.8 Total Bilirubin 0.6 AST 14 L ALT 18 Alkaline Phosphatase 44 L Troponin I < 0.02 Total Protein 7.3 Albumin 3.6 Current Medications Generic Name Dose Route Start Last Admin Trade Name Freq PRN Reason Stop Dose Admin Albuterol Sulfate 2 puff 05/28/19 07:48 Ventolin Hfa Inhaler - IH Q4H PRN SHORT OF BREATH/WHEEZING Enoxaparin Sodium 40 mg 05/28/19 10:00 05/28/19 11:08 Lovenox - SQ 40 mg DAILY JIAN Administration Montelukast Sodium 10 mg 05/28/19 22:00 Singulair - PO HS JIAN ASSESSMENT AND PLAN: 23 yo F with a PMHx of Anxiety, presenting to the ED because of sudden shortness of breath and pleuritic chest pain. Pleuritic CP -resolved -PE ruled out w/ VQ/CTA -d/c lovenox -FU with pulm outpatient for possible reactive airway disease on VQ scan, DC with Singulair 10mg QHS in view of high eosinophils, Albuterol MDI PRN for SOB -stable for discharge Anxiety -stable for now -says she is planning on seeing a psychiatrist outpatient Discharge home with outpatient follow up with Pulmonary clinic and PCP, advised patient return parameters.
[2019-05-28] MEDS ORDERED: MONTELUKAST NA 5 MG TAB.CHEW PO SCH (22:00)
== END 2019-05-28 13:50 | disposition home or self-care (01) | DRG 144 ==
LOC: JER 03:50 → JERBED 09:59 → J8W 15:31 → J4W 16:15
PROVIDERS: ADMIT Internal Medicine
DX: R07.81 Pleurodynia (principal); R06.00 Dyspnea, unspecified; F41.9 Anxiety disorder, unspecified; R00.1 Bradycardia, unspecified; R06.02 Shortness of breath
CPT/HCPCS: 36415; 71045-TC-FY; 71275-TC; 78582-TC; 80053; 82550; 83735; 83880; 84100; 84443; 84484; 84703; 85025; 85379; 85610; 85730; 87086; 93005; 93010; 93306-TC; 93971-TC; 99285-25; A9539; A9540; J7030; Q9967

== ENCOUNTER 2022-02-18 21:24 | Emergency (ER) | payer OTHER ==
[2022-02-18 21:40] VITALS: TEMP 98.3; BMI 29.2
[2022-02-18] MEDS ORDERED: SODIUM CHLORIDE 0.9% 500 ML INFUS.BAG IV ONE (22:54)
[2022-02-19 00:12] LABS: BASO % 0.3 % (0-2.0); EOS % 0.3 % (0-4.5); HEMATOCRIT 40.5 % (32.4-45.2); HEMOGLOBIN 13.9 GM/dL (10.7-15.3); LYMPH % 18.4 % (8-40); MCH 30.1 pg (25.7-33.7); MCHC 34.3 g/dl (32.0-36.0); MEAN CELL VOLUME 87.9 fl (80-96); MEAN PLT VOLUME 8.3 fl (7.5-11.1); MONO % 6.2 % (3.8-10.2); NEUT % 74.8 % (42.8-82.8); PLATELET COUNT 313 10^3/uL (134-434); RBC 4.61 M/mm3 (3.60-5.2); RDW 13.7 % (11.6-15.6); WHITE BLOOD COUNT 10.8 K/mm3 (4.0-10.0)
[2022-02-19 00:17] LABS: INR 1.11 (0.83-1.09); PROTHROMBIN TIME (PATIENT) 12.8 SEC (9.7-13.0)
[2022-02-19 00:36] LABS: ALBUMIN 4.3 g/dl (3.4-5.0); CALCIUM 9.3 mg/dL (8.5-10.1)
[2022-02-19 00:38] LABS: CREATININE 0.7 mg/dL (0.55-1.3)
[2022-02-19 00:40] LABS: BILIRUBIN,TOTAL 0.2 mg/dL (0.2-1); TOT PROT 8.2 g/dl (6.4-8.2)
[2022-02-19 01:21] VITALS: BP 126/73; PULSE 84; RESP 20
== END 2022-02-19 01:22 | disposition home or self-care (01) ==
LOC: JER 21:24
DX: R00.2 Palpitations (principal); R07.1 Chest pain on breathing
CPT/HCPCS: 36415; 71046-TC-FY; 80053; 84443; 84484; 85025; 85379; 85610; 93005; 93010; 99285-25